=== PATIENT | female | born 1950 | race Two or more races ===

== ENCOUNTER 2022-11-21 06:57 | Emergency (ER) | payer OTHER, BC ==
[2022-11-21 07:50] VITALS: BMI 25.7
[2022-11-21 08:21] LABS: BASO % 0.4 % (0-2.0); HEMATOCRIT 37.5 % (32.4-45.2); HEMOGLOBIN 12.6 GM/dL (10.7-15.3); LYMPH % 42.4 % (8-40); MCH 24.9 pg (25.7-33.7); MCHC 33.5 g/dl (32.0-36.0); MEAN CELL VOLUME 74.3 fl (80-96); MEAN PLT VOLUME 8.6 fl (7.5-11.1); MONO % 6.9 % (3.8-10.2); NEUT % 49.3 % (42.8-82.8); PLATELET COUNT 200 10^3/uL (134-434); RBC 5.05 M/mm3 (3.60-5.2); RDW 16.8 % (11.6-15.6); WHITE BLOOD COUNT 5.1 K/mm3 (4.0-10.0)
[2022-11-21 08:30] LABS: ACTIVATED PTT 39.2 SECONDS (25.2-36.5); INR 1.24 (0.83-1.09); PROTHROMBIN TIME (PATIENT) 14.4 SEC (9.7-13.0)
[2022-11-21 08:51] LABS: POTASSIUM 3.2 mmol/L (3.5-5.1)
[2022-11-21 08:53] LABS: CALCIUM 8.8 mg/dL (8.5-10.1)
[2022-11-21 08:54] LABS: ALBUMIN 3.8 g/dl (3.4-5.0)
[2022-11-21 08:56] LABS: CREATININE 0.5 mg/dL (0.55-1.3)
[2022-11-21 08:59] LABS: BILIRUBIN,TOTAL 0.6 mg/dL (0.2-1); TOT PROT 7.5 g/dl (6.4-8.2)
[2022-11-21] MEDS ORDERED: POTASSIUM CHLORIDE TABS 20 MEQ TABLET.ER (FP) PO ONE ×2 (09:24→09:48)
[2022-11-21 12:07] VITALS: BP 125/74; PULSE 60; RESP 20; TEMP 98.5
== END 2022-11-21 12:08 | disposition home or self-care (01) ==
LOC: JER 06:57
DX: R00.2 Palpitations (principal); M54.9 Dorsalgia, unspecified; I48.91 Unspecified atrial fibrillation; R07.89 Other chest pain
CPT/HCPCS: 36415; 71045-TC-FY; 80053; 83735; 84484; 85025; 85610; 85730; 86850; 86900; 86901; 93005; 93010; 99285-25